=== PATIENT | female | born 1970 | race Caucasian/White ===

== ENCOUNTER 2018-11-19 11:30 | Emergency (ER) | payer MEDICAID, OTHER ==
--- NOTE | 2018-11-19 12:41 | ED ---
Abdominal Pain/Female - HPI Summary HPI Summary: Pt is a 48 y/o F presenting to the ED with a chief complaint of abd pain in her RUQ onset about 4-5 days ago. It radiates to her back and up to her R anterior chest. She reports bloating, worsening pain when she eats, and loose stool when she has a bowel movement. She denies nausea or urinary symptoms. - History of Current Complaint Chief Complaint: EDAbdPain Stated Complaint: GENERAL ILLNESS/CHEST PAIN Time Seen by Provider: 11/19/18 12:22 Hx Obtained From: Patient Hx Last Menstrual Period: 03/09/13 Onset/Duration: Sudden Onset, Lasting Days, Still Present Timing: Constant Severity Initially: Moderate Severity Currently: Severe Pain Intensity: 7 Pain Scale Used: 0-10 Numeric Location: Discrete At: RUQ Radiates: Yes Radiates to: Back, Chest Character: Sharp, Cramping Aggravating Factor(s): Food, Movement, Deep Breaths Alleviating Factor(s): Nothing Associated Signs and Symptoms: Positive: Decreased Appetite, Other: - frequent BM. Negative: Urinary Symptoms, Nausea Allergies/Adverse Reactions: Allergies Allergy/AdvReac Type Severity Reaction Status Date / Time No Known Allergies Allergy Verified 06/30/12 14:20 PMH/Surg Hx/FS Hx/Imm Hx Previously Healthy: Yes Musculoskeletal History: Reports: Other Musculoskeletal History - carpal tunnel Neurological History: Reports: Other Neuro Impairments/Disorders - Fibromyalgia - Surgical History Surgery Procedure, Year, and Place: CSECTION X 2 Infectious Disease History: No Infectious Disease History: Denies: Traveled Outside the [place] in Last 30 Days - Family History Known Family History: Positive: Hypertension, Diabetes, Other - CA, - Social History Alcohol Use: None Hx Substance Use: Yes Substance Use Type: Reports: Prescribed Substance Use Comment - Amount & Last Used: oxycodone/hydrocodone abuse Smoking Status (MU): Never Smoked Tobacco Review of Systems Negative: Fever Positive: Chest Pain Positive: Abdominal Pain, Other - bloating, increased BM frequency. Negative: Nausea Positive: no symptoms reported Positive: Myalgia All Other Systems Reviewed And Are Negative: Yes Physical Exam - Summary Physical Exam Summary: Appearance: The patient is obese, in no acute distress and in no acute pain. Skin: The skin is warm and dry and skin color reflects adequate perfusion HEENT: The head is normocephalic and atraumatic. The pupils are equal and reactive. The conjunctivae are clear and without drainage. Nares are patent and without drainage. Mouth reveals moist mucous membranes and the throat is without erythema and exudate. The external ears are intact. The ear canals are patent and without drainage. The tympanic membranes are intact. Neck: The neck is supple with full range of motion and non-tender. There are no carotid bruits. There is no neck vein distension. Respiratory: Chest is non-tender. Lungs are clear to auscultation and breath sounds are symmetrical and equal. Cardiovascular: Heart is regular rate and rhythm. There is no murmur or rub auscultated. There is no peripheral edema and pulses are symmetrical and equal. Abdomen: Positive [place] sign. RUQ tenderness. There are normal bowel sounds heard in all four quadrants and there is no organomegaly palpated. Musculoskeletal: There is no back tenderness noted. Extremities are non-tender with full range of motion. There is good capillary refill. There is no peripheral edema or calf tenderness elicited. Neurological: Patient is alert and oriented to person, place and time. The patient has symmetrical motor strength in all four extremities. Cranial nerves are grossly intact. Deep tendon reflexes are symmetrical and equal in all four extremities. Psychiatric: The patient has an appropriate affect and does not exhibit any anxiety or depression. Triage Information Reviewed: Yes Vital Signs On Initial Exam: Initial Vitals Temp Pulse Resp BP Pulse Ox 98.0 F 107 16 152/100 97 11/19/18 11:34 11/19/18 11:34 11/19/18 11:34 11/19/18 11:34 11/19/18 11:34 Vital Signs Reviewed: Yes Diagnostics - Vital Signs Vital Signs Temp Pulse Resp BP Pulse Ox 11/19/18 11:34 98.0 F 107 16 152/100 97 - Laboratory Result Diagrams: 11/19/18 13:34 11/19/18 13:34 Lab Statement: Any lab studies that have been ordered have been reviewed, and results considered in the medical decision making process. - Radiology CXR Radiology Interpretation Completed By: Radiologist - IMPRESSION: Stigmata of obstructive lung disease. No acute pulmonary or cardiac process evident. ED Physician reviewed this report. - CT Abd/Pel CT Interpretation Completed By: Radiologist Summary of CT Findings: IMPRESSION: Normal appendix documented. Mild colonic diverticulosis without findings of acute diverticulitis. Negative for urolithiasis or hydronephrosis. Negative for ascites. Negative for lymphadenopathy. ED Physician reviewed this report. - Ultrasound No standard instances Ultrasound Interpretation Completed By: Radiologist Summary of Ultrasound Findings: Gallbladder US. NO CHOLELITHIASIS, PERICHOLECYSTIC FLUID, OR GALLBLADDER WALL THICKENING. THE PATIENT REPORT SOME PAIN WHEN SCANNING OVER THE GALLBLADDER. ED physician has reviewed this report. - EKG 1306 Cardiac Rate: Tachycardia - 117bpm EKG Rhythm: Sinus Tachycardia ST Segment: Normal Ectopy: None Abdominal Pain Fem Course/Dx - Course Course Of Treatment: Ms. Barahona presented with several days of right upper quadrant abdominal pain accompanied by some nausea, decreased appetite and frequent loose bowel movements. She felt worse after eating. She denied any urinary changes. She presented with quite a bit of pain but her vital signs were stable aside from a mild tachycardia. She was given IV fluids and pain medication while labs and gallbladder ultrasound were obtained. Her workup was essentially negative but she continued to have severe pain and was given more fluid and pain medications while CT was obtained. This was also unremarkable and she did feel somewhat improved. I recommended that we treat her symptomatically as an outpatient and get her follow up with GI. - Diagnoses Provider Diagnoses: Abdominal pain Discharge - Sign-Out/Discharge Documenting (check all that apply): Patient Departure - Discharge Patient Received Moderate/Deep Sedation with Procedure: No - Discharge Plan Condition: Fair Disposition: HOME Prescriptions: traMADol TAB* [Ultram*] 50 mg PO Q6HR PRN #20 tab MDD 4 PRN Reason: Pain Patient Education Materials: Abdominal Pain (ED) Forms: *Work Release Referrals: [facility] [Outside] - 3 Days Additional Instructions: Follow up with [facility]. Return to ED for any new or worsening symptoms. - Billing Disposition and Condition Condition: FAIR Disposition: Home - Attestation Statements Document Initiated by Scribe: Yes Documenting Scribe: Alison Guzman Provider For Whom Loreto is Documenting (Include Credential): Kenny Whitmore MD. Scribe Attestation: Alison Jain, scribed for Kenny Whitmore MD. on 11/19/18 at 2217. Scribe Documentation Reviewed: Yes Provider Attestation: The documentation as recorded by the Alison king accurately reflects the service I personally performed and the decisions made by me, Kenny Whitmore MD. Status of Scribe Document: Viewed
[2018-11-19] MEDS ORDERED: NS 0.9% 1000 ML** 1,000 ML IV ONE (12:45)
[2018-11-19] MEDS ORDERED: HYDROmorphone INJ1* 1 MG/ML SYRINGE IV SLOW PU ONE ×2 (12:45→15:45)
[2018-11-19] MEDS ORDERED: Ondansetron INJ* 2 MG/ML VIAL IV ONE ×2 (12:45→15:45)
[2018-11-19 13:53] LABS: ABS Basophils 0.1 10^3/ul (0-0.2); ABS Eosinophils 0 10^3/ul (0-0.6); ABS Lymphocytes 0.6 10^3/ul (1.0-4.8); ABS Monocytes 0.2 10^3/ul (0-0.8); ABS Neutrophils 6.4 10^3/ul (1.5-7.7); ABS Nucleated RBC 0 10^3/ul; Eosinophil % 0.1 %; Hematocrit 31 % (35-47); Hemoglobin 9.8 g/dl (12.0-16.0); Lymphocyte % 7.7 %; Mean Corpuscular HGB Conc 32 g/dl (31-36); Mean Corpuscular Hemoglobin 22 pg (27-31); Mean Corpuscular Volume 70 fL (80-97); Mean Platelet Volume 6.7 fL (7.4-10.4); Nucleated Red Blood Cells % 0; Platelet Count 409 10^3/ul (150-450); Red Blood Count 4.45 10^6/ul (4.00-5.40); Red Cell Distribution Width 16 % (10.5-15); White Blood Count 7.2 10^3/ul (3.5-10.8)
[2018-11-19 14:15] LABS: ALT 15 U/L (7-52); AST 18 U/L (13-39); Albumin 4.5 g/dL (3.2-5.2); Albumin/Globulin Ratio 1.4 (1-3); Alkaline Phosphatase 77 U/L (34-104); Anion Gap 9 mmol/L (2-11); BUN/Creatinine Ratio 18.4 (8-20); Blood Urea Nitrogen 9 mg/dL (6-24); CO2 Carbon Dioxide 24 mmol/L (22-32); Calcium 9.6 mg/dL (8.6-10.3); Chloride 105 mmol/L (101-111); EGFR African American 163.8 (>60); EGFR Non-African American 135.4 (>60); Globulin 3.2 g/dL (2-4); Glucose 95 mg/dL (70-100); HCG Pregnancy < 0.60 mIU/mL; Potassium 3.8 mmol/L (3.5-5.0); Sodium 138 mmol/L (135-145); Total Protein 7.7 g/dL (6.4-8.9)
[2018-11-19 14:17] LABS: Microcytosis 2+
[2018-11-19 14:35] LABS: Urine Appearance Cloudy; Urine Bilirubin Negative (Negative); Urine Blood Negative (Negative); Urine Color Yellow; Urine Glucose Negative (Negative); Urine Ketones Negative (Negative); Urine Nitrite Negative (Negative); Urine Protein Negative (Negative); Urine Specific Gravity 1.021 (1.010-1.030); Urine Urobilinogen Negative (Negative)
[2018-11-19] MEDS ORDERED: Magnesium CITRATE* 300 ML BTL PO ONE (17:54)
[2018-11-19 18:02] VITALS: BP 138/74
== END 2018-11-19 17:59 | disposition home or self-care (01) ==
LOC: ED 11:30
DX: R10.11 Right upper quadrant pain (principal); R00.0 Tachycardia, unspecified; M79.7 Fibromyalgia
CPT/HCPCS: 36415; 71046; 74176; 76705; 80053; 81003; 83605; 83690; 84702; 85025; 86140; 87040; 93005; 96361; 96374; 96375; 99283; J1170; J2405